=== PATIENT | male | born 1985 | race Hispanic/Latino ===

== ENCOUNTER 2017-02-22 19:28 | Emergency (ER) | payer SELFPAY ==
[~2017-02-22 19:28] MED LIST: Iopamidol 370 76% 100 ML VIAL ONE
[2017-02-22] MEDS ORDERED: Sodium Chloride 0.9% 1,000 ML ONE ×2 (19:55→21:02)
[2017-02-22 20:18] LABS: #Basophils 0.1 thou/uL (0.0-0.2); #Lymphocytes 1.7 thou/uL (1.20-3.40); #Monocytes 0.2 thou/uL (0.11-0.59); #Neutrophils 2.2 thou/uL (1.40-6.50); %Basophils 1.8 % (0.0-1.0); %Eosinophils 0.4 % (0.0-10.0); %Lymphocytes 40.2 % (21.0-51.0); %Monocytes 5.4 % (0.0-10.0); %Neutrophils 52.2 % (42.0-75.0); Hemoglobin 15.5 g/dL (14.0-18.0); Mean Corpuscular HGB CONC 33.4 g/dL (32.0-36.0); Mean Corpuscular Hemoglobin 29.9 pg (27.0-31.0); Mean Corpuscular Volume 89.6 fl (80.0-94.0); Mean Platelet Volume 10.5 fL (7.4-10.4); Platelet Count 160 thou/uL (130-400); RBC Distribution Width 11.4 % (11.5-14.5); Red Blood Cell (RBC) Count 5.19 mill/uL (4.70-6.10); White Blood Cell (WBC) Count 4.2 thou/uL (4.8-10.8)
[2017-02-22 20:30] LABS: ALT (SGPT) 153 U/L (8-55); AST (SGOT) 140 U/L (5-34); Acetaminophen Less than 6.0 mcg/mL (10.0-30.0); Albumin 4.3 g/dL (3.5-5.0); Alcohol 338 mg/dL (Less than 10); Alkaline Phosphatase 145 U/L (40-150); Anion Gap 23 mmol/L (10-20); BUN (Urea Nitrogen) 6 mg/dL (8.9-20.6); Bilirubin, Total 0.3 mg/dL (0.2-1.2); Calc. Creatinine Clearance 0 mL/min (70-130); Calcium 8.8 mg/dL (7.8-10.44); Carbon Dioxide 24 mmol/L (22-29); Chloride 96 mmol/L (98-107); Estimated GFR-MDRD Greater than 90; Globulin 3.4 g/dL (2.4-3.5); Glucose 369 mg/dL (70-105); Lipase 17 U/L (8-78); Potassium 3.5 mmol/L (3.5-5.1); Protein, Total 7.7 g/dL (6.0-8.3); Salicylate Less than 8.0 mg/dL (15.0-30.0); Sodium 139 mmol/L (136-145)
[2017-02-22 20:54] LABS: Amphetamine Not Detected (NotDetected); Barbiturates Screen Not Detected (NotDetected); Benzodiazepine Screen Not Detected (NotDetected); Cocaine Metabolite Screen Detected (NotDetected); Medtox Control Line Valid? VALID (VALID); Methadone Not Detected (NotDetected); Methamphetamine Not Detected (NotDetected); Opiate Screen Not Detected (NotDetected); Oxycodone Screen Not Detected (NotDetected); Phencyclidine (PCP) Not Detected (NotDetected); THC/Cannabinoid Screen Not Detected (NotDetected); Tricyclic Screen Not Detected (NotDetected)
[2017-02-22 21:50] LABS: Lactic Acid 3.1 mmol/L (0.5-2.2)
--- NOTE | 2017-02-22 22:23 | RAD ---
CHEST ONE VIEW: History: Upper abdominal and chest pain. Comparison: None. FINDINGS: Lungs are clear. No pneumothorax or effusion. Cardiac silhouette and mediastinal contours within norm al limits. IMPRESSION: No acute intrathoracic abnormality. POS: [facility]
--- NOTE | 2017-02-22 22:47 | CT ---
CT ABDOMEN AND PELVIS WITH CONTRAST: Indication: Upper abdominal pain, chest pain. Comparison: None. FINDINGS: There is no significant abnormality within the imaged lung bases. Evidence of fatty infiltration of t he liver. The bowel is incompletely assessed without enteric contrast administration. There is extens ariana calcification of the pancreas indicating sequellae from chronic pancreatitis. No hydronephrosis o f either kidney, or evidence of adrenal mass. Spleen is unremarkable. There is moderate distention of the stomach by ingested debris. There is nonspecific heterogeneity of the prostate gland. Urinary bl adder is moderately distended and not opacified. Abdominal aorta is normal in caliber. No free air or portal venous gas. The imaged osseous structures are non acute in appearance. IMPRESSION: 1. Hepatic steatosis. 2. Sequella from chronic pancreatitis. 3. Incomplete assessment of the bowel by absence of enteric contrast administration. POS: [facility]
[2017-02-22 23:25] LABS: Base Excess -1.5 mEq/L (-2 - +2); pH (venous) 7.36 (7.35-7.45)
[2017-02-22 23:26] LABS: Hemoglobin (Hb) 13.5 g/dL (13.2-17.3)
[2017-02-22 23:34] LABS: Lactic Acid 2.9 mmol/L (0.5-2.2)
[2017-02-23 01:37] LABS: Anion Gap 18 mmol/L (10-20)
[2017-02-23 01:48] LABS: BUN (Urea Nitrogen) 5 mg/dL (8.9-20.6); Calc. Creatinine Clearance 0 mL/min (70-130); Calcium 7.1 mg/dL (7.8-10.44); Carbon Dioxide 20 mmol/L (22-29); Chloride 106 mmol/L (98-107); Estimated GFR-MDRD Greater than 90; Glucose 242 mg/dL (70-105); Potassium 3.7 mmol/L (3.5-5.1); Sodium 140 mmol/L (136-145)
--- NOTE | 2017-02-23 08:31 | CT ---
PRELIMINARY REPORT/[facility]/EMERGENCY AFTER HOURS PROCEDURE: EXAM: CT Head Without Intravenous Contrast CLINICAL HISTORY: 31 years old, male; Pain TECHNIQUE: Axial computed tomography images of the head/brain without intravenous contrast. All CT scans at this facility use one or more dose reduction techniques, viz.: automated exposure control; ma/kV adjustme nt per patient size (including targeted exams where dose is matched to indication; i.e. head); or ite rative reconstruction technique. Coronal and sagittal reformatted images were created and reviewed. COMPARISON: No relevant prior studies available. FINDINGS: Brain: Mild volume loss No hemorrhage. No significant white matter disease. No edema. Ventricles: Unremarkable. No ventriculomegaly. Bones/joints: Unremarkable. No acute fracture. Soft tissues: Unremarkable. Sinuses: Unremarkable as visualized. No acute sinusitis. Mastoid air cells: Unremarkable as visualized. No mastoid effusion. IMPRESSION: No intracranial hemorrhage.Please see discussion above. Thank you for allowing us to participate in the care of your patient. Dictated and Authenticated by: Ryland Mcdermott MD 02/23/2017 2:15 AM Central Time ([place] & [place]) HEAD CT WITHOUT CONTRAST: FINAL REPORT Date: 02-23-17 Comparison: None. History: Headache, pain. I agree with the preliminary [facility] report dictated by Dr. Ryland Mcdermott. The imaged paranasal sinuses a nd mastoid air cells appear well aerated with no displaced calvarial fracture. No intracranial hemorr saulo, midline shift or mass effect. IMPRESSION: No acute findings. Code QA POS: [facility]
== END 2017-02-23 07:12 | disposition home or self-care (01) ==
LOC: NAV ERS 19:28
DX: K86.1 Other chronic pancreatitis (principal); F10.129 Alcohol abuse with intoxication, unspecified; E10.65 Type 1 diabetes mellitus with hyperglycemia
CPT/HCPCS: 36416; 70450; 71045; 74177; 80048; 80306; 80307; 82805; 83605; 83690; 85025; 93005; 96360; 36415-59; J7050

== ENCOUNTER 2017-09-01 21:28 | Emergency (ER) | payer SELFPAY ==
[2017-09-01] MEDS ORDERED: Acetaminophen 500 MG TAB ONE (21:43)
[2017-09-01 22:17] LABS: #Basophils 0.1 thou/uL (0.0-0.2); #Eosinphils 0.1 thou/uL (0.0-0.7); #Lymphocytes 1.8 thou/uL (1.20-3.40); #Monocytes 0.4 thou/uL (0.11-0.59); #Neutrophils 5.9 thou/uL (1.40-6.50); %Basophils 0.7 % (0.0-1.0); %Eosinophils 0.7 % (0.0-10.0); %Lymphocytes 22.2 % (21.0-51.0); %Monocytes 5.2 % (0.0-10.0); %Neutrophils 71.3 % (42.0-75.0); Hemoglobin 14.8 g/dL (14.0-18.0); Mean Corpuscular HGB CONC 34.5 g/dL (32.0-36.0); Mean Corpuscular Hemoglobin 29.8 pg (27.0-31.0); Mean Corpuscular Volume 86.4 fL (78.0-98.0); Mean Platelet Volume 9.7 fL (7.4-10.4); Platelet Count 213 thou/uL (130-400); Red Blood Cell (RBC) Count 4.95 mill/uL (4.70-6.10); White Blood Cell (WBC) Count 8.3 thou/uL (4.8-10.8)
[2017-09-01 22:20] LABS: ALT (SGPT) 448 U/L (8-55); AST (SGOT) 215 U/L (5-34); Albumin 4.3 g/dL (3.5-5.0); Alkaline Phosphatase 209 U/L (40-150); Anion Gap 20 mmol/L (10-20); BUN (Urea Nitrogen) 7 mg/dL (8.9-20.6); Bilirubin, Total 0.7 mg/dL (0.2-1.2); Calc. Creatinine Clearance 0 mL/min (70-130); Calcium 9.4 mg/dL (7.8-10.44); Carbon Dioxide 22 mmol/L (22-29); Chloride 87 mmol/L (98-107); Estimated GFR-MDRD 68; Globulin 2.9 g/dL (2.4-3.5); Potassium 4.1 mmol/L (3.5-5.1); Protein, Total 7.2 g/dL (6.0-8.3); Sodium 125 mmol/L (136-145)
[2017-09-01] MEDS ORDERED: Sodium Chloride 0.9% 1,000 ML ONE (22:23)
[2017-09-01] MEDS ORDERED: Insulin Regular 300 UNITS/3 ML VIAL ONE (22:25)
[2017-09-01 22:30] LABS: Glucose 800 mg/dL (70-105)
[2017-09-01 22:36] LABS: Bilirubin Negative (Negative); Blood, Urine Moderate (Negative); Clarity Clear (Clear); Glucose, Urine (Dipstick) 500 mg/dL (Negative); Leukocyte Negative (Negative); Nitrite Negative (Negative); Protein, Urine (Dipstick) Negative (Neg-Trace); Urobilinogen 0.2 mg/dL (0.2-1.0)
[2017-09-01 22:39] LABS: Specific Gravity, Urine 1.033 (1.002-1.036)
[2017-09-01 22:42] LABS: Bacteria/HPF None Seen HPF (None Seen); Squamous Epithelial None Seen HPF (0-3); WBC/HPF 0-3 HPF (0-3)
== END 2017-09-01 23:01 | disposition short-term general hospital (02) ==
LOC: NAV ERS 21:28
DX: E10.65 Type 1 diabetes mellitus with hyperglycemia (principal); Z79.84 Long term (current) use of oral hypoglycemic drugs
CPT/HCPCS: 36416; 80053; 81003; 81015; 82010; 85025; 94760; 96361; 96374; J1815; J7050

== ENCOUNTER 2017-11-05 08:22 | Emergency (ER) | payer SELFPAY ==
[2017-11-05] MEDS ORDERED: Lidocaine 1% w/Epinephrine 1:100K 30 ML VIAL ONE (08:49)
[2017-11-05] MEDS ORDERED: Triple Antibiotic Oint 1 GM Packet ONE (09:04)
== END 2017-11-05 09:27 | disposition home or self-care (01) ==
LOC: NAV ERS 08:22
DX: S61.511A Laceration without foreign body of right wrist, initial encounter (principal); E11.9 Type 2 diabetes mellitus without complications; Z79.899 Other long term (current) drug therapy; Z79.84 Long term (current) use of oral hypoglycemic drugs; W25.XXXA Contact with sharp glass, initial encounter
CPT/HCPCS: 12002; J2001